=== PATIENT | female | born 1955 | race Caucasian/White ===

== ENCOUNTER 2019-03-27 06:51 | Day surgery (SDC) | payer BC ==
[2019-03-26 08:29] VITALS: BMI 25.1
--- NOTE | 2019-03-27 07:29 | HP ---
History & Physical Update - Physical Physical: No Change - Assessment Assessment: No Change - Plan Plan: No Change (H&P reviwed , no changes ,for vaginal hysterectomoy, a.p repair )
[2019-03-27] MEDS ORDERED: MIDAZOLAM HCL 2 MG/2 ML SINGLE DOSE VIAL ONE (08:47)
[2019-03-27] MEDS ORDERED: PROPOFOL 20 ML ONE (08:48)
[2019-03-27] MEDS ORDERED: ROCURONIUM BROMIDE 50 MG/5 ML SYRINGE ONE (08:48)
[2019-03-27] MEDS ORDERED: VASOPRESSIN 20 UNITS/ML VIAL IV ONE ×2 (08:49→08:50)
[2019-03-27] MEDS ORDERED: ceFAZolin SODIUM 1 GM VIAL IVPB ONE (09:30)
[2019-03-27] MEDS ORDERED: metroNIDAZOLE 0.75% VAGINAL GEL 70 GM TUBE ONE (10:51)
[2019-03-27] MEDS ORDERED: metroNIDAZOLE 0.75% VAGINAL GEL 70 GM TUBE VG ONE (11:00)
--- NOTE | 2019-03-27 11:03 | PN ---
Progress Note (short form) - Note Progress Note: I assisted Dr. Ramírez at the [facility] [place], A and P repair for the entirety of the case.
[2019-03-27] MEDS ORDERED: oxyCODONE HCL 5 MG TABLET PO PRN ×2 (11:20→12:02)
[2019-03-27] MEDS ORDERED: ONDANSETRON 4 MG/2 ML VIAL IVPUSH PRN ×2 (11:20→12:02)
[2019-03-27] MEDS ORDERED: PROMETHAZINE HCL 25 MG/1 ML VIAL IVPUSH PRN (11:20)
[2019-03-27] MEDS ORDERED: LACTATED RINGERS SOLUTION 1,000 ML IV SCH (11:30)
[2019-03-27] MEDS ORDERED: IBUPROFEN 600 MG TABLET (FP) PO PRN (12:02)
[2019-03-27] MEDS: IBUPROFEN 800 MG/8 ML IJ IVPB PRN ×2 (12:10→23:56)
[2019-03-27] MEDS ORDERED: ELECTROLYTE-148 SOLN 1,000 ML IV SCH (12:15)
[2019-03-27] MEDS ORDERED: ACETAMINOPHEN INJECTION 100 ML IVPB ONE (13:03)
[2019-03-27] MEDS ORDERED: HYDROmorphone HCl 2 MG/ML VIAL ONE (13:03)
--- NOTE | 2019-03-27 13:06 | OP ---
Operative Note - Note: Operative Date: 03/27/19 Pre-Operative Diagnosis: uterovaginal prolapse, cystorectocele Operation: TVH, cystorectocele repair, pernioplasty, RSO Findings: utrovaginal prolapse, cystorectocele Surgeon: Milind Moses [employer] System Specialist: iHren Hyman Anesthesia: General Specimens Removed: uterus, cervix , RT tube and ovary Estimated Blood Loss (mls): 100 Drains & Tubes with Location: severino Drains, Volume Out (mls): 350 Blood Volume Replaced (mls): 0 Fluid Volume Replaced (mls): 1,300 Operative Report Dictated: Yes
[2019-03-27] MEDS ORDERED: ACETAMINOPHEN 1000 MG/100 ML VIAL (NON FORMULARY) IVPB ONE (13:10)
[2019-03-27] MEDS ORDERED: HYDROmorphone HCl 2 MG/ML VIAL IVPUSH ONE (13:10)
[2019-03-27] MEDS ORDERED: ceFAZolin SODIUM 1 GM VIAL ONE (14:30)
[2019-03-27] MEDS: CEFAZOLIN 1 GM/D5W 1 GM/50 ML BAG IVPB SCH ×2 (14:40→21:23)
[2019-03-28] MEDS: CEFAZOLIN 1 GM/D5W 1 GM/50 ML BAG IVPB SCH ×2 (03:11→09:00)
[2019-03-28 08:23] LABS: BASO % 0.1 % (0-2.0); EOS % 0.1 % (0-4.5); HEMATOCRIT 36.9 % (32.4-45.2); HEMOGLOBIN 12.7 GM/dL (10.7-15.3); MCH 32.7 pg (25.7-33.7); MCHC 34.4 g/dl (32.0-36.0); MEAN PLT VOLUME 8.3 fl (7.5-11.1); MONO % 5.7 % (3.8-10.2); NEUT % 78.1 % (42.8-82.8); PLATELET COUNT 195 K/MM3 (134-434); RBC 3.89 M/mm3 (3.60-5.2); RDW 13.8 % (11.6-15.6); WHITE BLOOD COUNT 8.6 K/mm3 (4.0-10.0)
[2019-03-28 08:44] LABS: BLOOD UREA NITROGEN 6.7 mg/dL (7-18); CALCIUM 8.8 mg/dL (8.5-10.1); CREATININE 0.6 mg/dL (0.55-1.3); POTASSIUM 3.4 mmol/L (3.5-5.1)
[2019-03-28 08:46] VITALS: BP 130/78; PULSE 72; TEMP 98.4
[2019-03-28] MEDS ORDERED: ENOXAPARIN NA (PORCINE) 40 MG/0.4 ML DISP.SYRIN SQ SCH (10:00)
--- NOTE | 2019-03-28 16:10 | PN ---
Progress Note (short form) - Note Progress Note: pod 1 , no c/o vaginal packing removed , severino was discontinue,was able to void , no vaginal bleeding or discharge Last Vital Signs Temp Pulse Resp BP Pulse Ox 98.4 F 72 18 130/78 95 03/28/19 08:45 03/28/19 08:45 03/28/19 08:45 03/28/19 08:45 03/28/19 09:00 CBC, BMP 03/28/19 07:32 03/28/19 07:32 Last Vital Signs Temp Pulse Resp BP Pulse Ox 98.4 F 72 18 130/78 95 03/28/19 08:45 03/28/19 08:45 03/28/19 08:45 03/28/19 08:45 03/28/19 09:00 abdomen soft, no distension, no cva vagina no bleeding, no discharge no calf tenderness impression doing well, wants to go home plan d/c home with instruction follow up office 2 weeks
--- NOTE | 2019-03-28 18:26 | OP ---
DATE OF OPERATION: 03/27/2019 PREOPERATIVE DIAGNOSIS: Uterovaginal prolapse, cystocele, rectocele. POSTOPERATIVE DIAGNOSIS: Uterovaginal prolapse, cystocele, rectocele. PROCEDURE: Vaginal hysterectomy, cystocele repair, rectocele repair, and perineoplasty. SURGEON: Milind Moses MD. BAKERY DEMONSTRATOR: Hiren Hyman MD. ANESTHESIA: General. ESTIMATED BLOOD LOSS: 100 mL. DESCRIPTION OF PROCEDURE: Patient was taken to operating room, where under adequate general anesthesia in dorsal lithotomy position. An examination under anesthesia revealed external genitalia to be normal. Vagina introitus was gaping. There was a cystocele, rectocele, and then the cervix was at the vaginal introitus. No pelvic masses were palpable. Then with the weighted speculum in the vagina, anterior lip of the cervix was grasped with 2 single-tooth tenaculum and then anterior and posterior vaginal mucosa was infiltrated with diluted solution of the vasopressin. Then with cautery, an anterior and posterior vaginal mucosa was circumferentially cut, and then the bladder anterior vaginal wall was dissected from the cervix with Metzenbaum scissors and blunt dissection. Then also posteriorly vaginal mucosa was dissected with Metzenbaum scissors until the cul-de-sac was reached, and the peritoneum was grasped and the peritoneum was entered. Then the weighted speculum was advanced into the cul-de-sac area. The bladder was further pushed down. Both uterosacral ligaments were identified, was clamped with Sanjeev clamps, cut and the clamps replaced with 0 Vicryl suture bilaterally. These clamps were held with hemostats. Then bladder was further pushed up, and then anterior peritoneum was grasped with a Dea clamp and entered, and then bladder was entered with a retractor, and then uterine artery was identified bilaterally, clamped with Sanjeev clamps and cut, and the cut replaced with 0 Vicryl suture bilaterally. Then parametrium area was clamped with Sanjeev clamps and cut, and the clamps replaced with 0 Vicryl suture bilaterally until the utero-tuboovarian ligament was reached. At this time the Sanjeev was clamped at both tuboovarian ligament and cut with Burleson scissors, and then the clamps were replaced with 0 Vicryl suture bilaterally and then with 0 Vicryl ties bilaterally. These sutures also were held with a straight clamp. Then the left tube and ovary was identified on the left side and grasped with the straight clamp and a Dea clamp was placed at the base, and specimens were removed including the left tube and ovary, and then the pedicle was tied with 2-0 Vicryl ties. The right ovary and ligament was not able to be located or be seen. Then no cul-de-sac bleeding, then peritoneum was closed with pursestring suture of the 2-0 Vicryl. Then the peritoneum was closed. At this time cystocele repair was started by putting 2 Dea clamps at the edge of the vaginal mucosa, and then vaginal mucosa was undermined with Metzenbaum scissors, and then bladder was from the anterior vaginal mucosa, and then by blunt and sharp dissection, and then the excised mucosa was cut, and then with the pursestring suture was placed over the superficial part of the bladder, and then the bladder was pushed up with a pursestring suture. Excess vaginal mucosa was cut, and then the vaginal mucosa was closed with continuous suture of 3-0 Vicryl. At this time, the posterior repair started by infiltrating the perineal body with dilute solution of the vasopressin. Excess perineal skin was removed, and then the posterior vaginal mucosa was grasped with 2 Allis clamps and cut vertically, and then rectum was from the posterior vaginal mucosa. And then with a finger in the rectum, interrupted mattress suture of the 2-0 Vicryl was placed over the rectum, and the rectocele was repaired in its entirety and vaginal mucosa was removed with Metzenbaum scissors, and then the vaginal edge was closed with interrupted suture of the 3-0 Vicryl muscle identified bilaterally, and then the skin over the muscles was removed, and then the muscles were brought together with interrupted sutures of the 2-0 Vicryl, and then perineoplasty was done, and then the incision was closed with episiotomy-like fashion with 3-0 Vicryl, and then vagina was irrigated, no active bleeding was seen. A Mackenzie was inserted, clear urine. No bleeding was seen. Then vagina was packed with 1-inch gauze with MetroGel, and patient tolerated procedure well, left the OR in good condition. Best [id number]
--- NOTE | 2019-03-29 19:12 | PATH ---
Surgical Pathology Report Patient Name: GRACE PUENTES [facility]. Rec. #: [id number] /Age/Gender: 1955 (Age: 63) / F Account: [id number] Location: AMBULATORY SURG Taken: 03/27/2019 Received: 03/27/2019 Reported: 03/29/2019 Physicians: Milind Moses M.D. Specimen(s) Received A: UTERUS AND CERVIX B: LEFT FALLOPIAN TUBE C: LEFT OVARY D: CYSTOCELE Clinical History Incomplete uterovaginal prolapse Final Diagnosis A. UTERUS AND CERVIX, HYSTERECTOMY: ADENOMYOSIS. WEAKLY PROLIFERATIVE / ATROPHIC ENDOMETRIUM. CERVIX WITH ULCERATION, MARKED ACUTE AND CHRONIC INFLAMMATION. B. LEFT FALLOPIAN TUBE, SALPINGECTOMY: PORTION OF FALLOPIAN TUBE WITH NO SIGNIFICANT PATHOLOGIC CHANGE. C. LEFT OVARY, BIOPSY: BENIGN FIBROVASCULAR TISSUE AND SMOOTH MUSCLE. ATTACHED LUMINAL TISSUE LINED BY BENIGN TUBAL EPITHELIUM. NO OVARIAN TISSUE IDENTIFIED. D. CYSTOCELE, RESECTION: PORTIONS OF SQUAMOUS EPITHELIUM WITH EROSION AND MARKED CHRONIC INFLAMMATION. Electronically Signed Bunny Gamble M.D. Gross Description A. Received in formalin labeled "uterus and cervix," is a 47 g uterus with an attached cervix and no attached adnexa. The specimen measures 7.7 cm from superior to inferior, 4.0 cm from left to right and 2.6 cm from anterior to posterior. The cervix measures 3 cm in length and averages 1.8 cm in diameter. The ectocervix is palmer, smooth and glistening. The endocervix is unremarkable. The serosa is pink-palmer and smooth. The endometrial cavity measures 3.5 cm in length and 2.1 cm from cornu to cornu. The endometrium is palmer-red and measures 0.1 cm in thickness. The myometrium is palmer-curiel and averages 1.3 cm in thickness. No intramural nodules are identified. [employer] sections are submitted in 6 cassettes as follows: 1-anterior cervix; 2-posterior cervix; 7-7-becypkmo endomyometrium; 9-3-liftvldmp endomyometrium. B. Received in formalin labeled "left fallopian tube," is a 4.6 cm in length portion of fallopian tube. No fimbria are present. The outer surfaces are palmer and smooth. Sectioning reveals an unremarkable lumen. [employer] sections are submitted in one cassette. C. Received in formalin labeled "left ovary," is a 2.2 x 1.3 x 0.8 cm portion of palmer brown soft tissue, possibly consistent with an ovary. The specimen is serially sectioned and entirely submitted in one cassette. D. Received in formalin labeled "cystocele," are 2 palmer, irregular portions of soft tissue measuring 1.4 x 0.4 x 0.2 cm and 1.7 x 0.8 x 0.5 cm. The larger portion is bisected and the specimen is entirely submitted in one cassette. 03/28/2019 [facility]03/28/2019
== END 2019-03-28 11:20 | disposition home or self-care (01) ==
LOC: JASU-SURG 06:51 → JASUSAT 06:51 → J3W 15:09 → JASUSAT 03-28 11:20
PROVIDERS: ATTEND Obstetrics & Gynecology
PROC: 0WQN0ZZ Repair Female Perineum, Open Approach (ICD-10-PCS; 2019-03-27)
PROC: 0UT97ZZ Resection of Uterus, Via Natural or Artificial Opening (ICD-10-PCS; 2019-03-27)
PROC: 0JQC0ZZ Repair Pelvic Region Subcutaneous Tissue and Fascia, Open Approach (ICD-10-PCS; principal; 2019-03-27 09:00)
PROC: 0JQC0ZZ Repair Pelvic Region Subcutaneous Tissue and Fascia, Open Approach (ICD-10-PCS; 2019-03-27 09:00)
DX: N81.4 Uterovaginal prolapse, unspecified (principal); N81.10 Cystocele, unspecified; N81.6 Rectocele
CPT/HCPCS: 36415; 80048; 85025; 86850; 86900; 86901; 88302-TC; 88304-TC; 88305-TC; 94760; J0131